=== PATIENT | male | born 1945 | race Hispanic/Latino ===

== ENCOUNTER 2023-01-25 11:19 | Emergency (ER) | payer OTHER ==
[~2023-01-25] VITALS: Ht 180.3 cm; Wt 83.9 kg
[2023-01-25 11:42] VITALS: BP 142/66; PULSE 67; RESP 16; O2SAT 99
== END 2023-01-25 11:54 | disposition left against medical advice (07) ==
LOC: EDH 11:19
DX: H57.13 Ocular pain, bilateral (principal); Z53.21 Procedure and treatment not carried out due to patient leaving prior to being seen by health care provider
CPT/HCPCS: 99281